=== PATIENT | female | born 1945 | race African-American/Black ===

== ENCOUNTER 2017-03-17 18:20 | Emergency (ER) | payer OTHER, MEDICAID ==
[~2017-03-17] VITALS: Ht 149.9 cm; Wt 95.2 kg
[2017-03-17 21:16] VITALS: BP 128/84
== END 2017-03-17 21:16 | disposition home or self-care (01) ==
LOC: ED 18:20
DX: R00.2 Palpitations (principal); I10 Essential (primary) hypertension; E11.9 Type 2 diabetes mellitus without complications

== ENCOUNTER 2017-06-05 10:50 | Emergency (ER) | payer OTHER, MEDICAID ==
[~2017-06-05] VITALS: Ht 149.9 cm; Wt 88.9 kg
[2017-06-05 11:05] VITALS: Ht 149.9 cm; Wt 88.9 kg
[2017-06-05 12:32] LABS: BASOPHIL % 0.4 % (0-2); PLATELET COUNT 232 x10^3mcL (130-400); RED CELL DISTRIBUTION WIDTH 14.2 % (11.5-14.5)
[2017-06-05 12:50] LABS: microscopic required? YES; urine erythrocyte TRACE (NEGATIVE)
[2017-06-05 12:56] LABS: CK-MB 0.7 ng/mL (0-3.6)
[2017-06-05 13:01] LABS: AMPHETAMINE QUAL UR NONE DETECTED (NEG <=1000)
[2017-06-05 14:02] LABS: CALCIUM 9.2 mg/dL (8.5-10.1); CARBON DIOXIDE 24.6 mmol/L (21-32); CHLORIDE SERUM 100 mmol/L (98-107); CREATININE SERUM 0.8 mg/dL (0.6-1.0); GLUCOSE SERUM 167 mg/dL (74-106); POTASSIUM SERUM 3.5 mmol/L (3.5-5.1); SODIUM SERUM 137 mmol/L (136-145)
[2017-06-05 14:06] LABS: ALBUMIN 3.7 g/dL (3.4-5.0); ALKALINE PHOSPHATASE 71 U/L (46-116); ALT/SGPT 25 U/L (14-59); AST/SGOT 15 U/L (15-37); BILIRUBIN TOTAL 0.3 mg/dL (0.20-1.00); TOTAL PROTEIN, SERUM 8.2 g/dL (6.4-8.2)
[2017-06-05 14:32] VITALS: BP 138/81
== END 2017-06-05 14:32 | disposition home or self-care (01) ==
LOC: ED 10:50
PROVIDERS: Emergency Medicine
DX: I10 Essential (primary) hypertension (principal); E11.9 Type 2 diabetes mellitus without complications; F17.210 Nicotine dependence, cigarettes, uncomplicated; Z00.00 Encounter for general adult medical examination without abnormal findings
CPT/HCPCS: 36415; 36600; G0480; Q0092

== ENCOUNTER 2017-07-24 23:16 | Emergency (ER) | payer OTHER, MEDICAID ==
[2017-07-25 01:02] LABS: microscopic required? NO
[2017-07-25 01:16] LABS: urine erythrocyte NEGATIVE (NEGATIVE)
[2017-07-25 01:24] LABS: CHLORIDE SERUM 101 mmol/L (98-107); CREATININE SERUM 0.9 mg/dL (0.6-1.0); GLUCOSE SERUM 160 mg/dL (74-106); POTASSIUM SERUM 3.5 mmol/L (3.5-5.1); SODIUM SERUM 139 mmol/L (136-145)
[2017-07-25 02:20] VITALS: BP 128/90
== END 2017-07-25 02:20 | disposition home or self-care (01) ==
LOC: ED 23:16
PROVIDERS: Emergency Medicine
DX: I10 Essential (primary) hypertension (principal); E11.9 Type 2 diabetes mellitus without complications; G89.29 Other chronic pain; Z91.013 Allergy to seafood

== ENCOUNTER 2018-08-01 22:15 | Emergency (ER) | payer OTHER, MEDICAID ==
[~2018-08-01] VITALS: Ht 152.4 cm; Wt 90.7 kg
[~2018-08-01 22:15] MED LIST: CLONAZEPAM0.5 MG PO; ENALAPRIL MALEA20 MG PO; HUMALOG100 UNIT/1 SQ; LIPI20 PO; NOR10 PO; PRILOSEC OTC20 M1 PO
[2018-08-01 22:23] VITALS: Ht 152.4 cm; Wt 90.7 kg
[2018-08-01 23:33] LABS: BASOPHIL % 0.4 % (0-2); PLATELET COUNT 237 x10^3mcL (130-400)
[2018-08-01 23:45] LABS: UA SPECIFIC GRAVITY 1.015 (1.005-1.035); microscopic required? YES; urine erythrocyte TRACE (NEGATIVE)
[2018-08-02 00:02] LABS: CALCIUM 8.9 mg/dL (8.5-10.1); CARBON DIOXIDE 26.2 mmol/L (21-32); CHLORIDE SERUM 101 mmol/L (98-107); GLUCOSE SERUM 217 mg/dL (74-106); POTASSIUM SERUM 3.9 mmol/L (3.5-5.1); SODIUM SERUM 137 mmol/L (136-145)
[2018-08-02 00:12] LABS: ALBUMIN 3.7 g/dL (3.4-5.0); ALKALINE PHOSPHATASE 70 U/L (46-116); ALT/SGPT 23 U/L (14-59); AST/SGOT 13 U/L (15-37); BILIRUBIN TOTAL 0.3 mg/dL (0.20-1.00); TOTAL PROTEIN, SERUM 7.9 g/dL (6.4-8.2)
[2018-08-02 00:22] LABS: ERYTHROCYTE SED RATE 27 mm/hr (0-30)
[2018-08-02 02:29] VITALS: BP 148/89
== END 2018-08-02 02:29 | disposition home or self-care (01) ==
LOC: ED 22:15
PROVIDERS: Emergency Medicine
DX: R51 Headache (principal); I16.0 Hypertensive urgency; I10 Essential (primary) hypertension; E11.9 Type 2 diabetes mellitus without complications; G89.29 Other chronic pain; Z91.013 Allergy to seafood
CPT/HCPCS: 36415; 83880; 87804

== ENCOUNTER 2020-01-26 05:04 | Observation (INO) | payer OTHER, MEDICAID ==
[~2020-01-26] VITALS: Ht 152.4 cm; Wt 84.8 kg
[~2020-01-26 05:04] MED LIST changes: +DECADRON4 MG PO; +ELIQUIS2.5 MG PO; +EVI60 PO; +HUMULIN R100 U/1 M1; +NOR10 GT; +VASOTEC20 MG PO
[2020-01-26 05:16] VITALS: Ht 152.4 cm; Wt 84.8 kg
--- NOTE | 2020-01-26 05:18 | NUR ---
PT BIBA FOR C/O GENERAL WEAKNESS X 1 HR AGO. PT WAS RELEASED FROM [facility] [place]ST [place]. PT STATED SHE TESTED POSITIVE FOR COVID-19 ON 01/20/20. PT STATED SHE FELT GENERAL WEAKNESS AND SOME SOB. PER EMS ON RA PT O2 SAT WAS 81% ON 15 L NON-REBREATHER MASK PT O2 SAT @ 98%. PT IS AAOX4, NAD NOTED. PT DENIES ANY PAIN. PT IN GOWN AND PLACED ON FULL CM, VSS. SING AT BEDSIDE FOR MSE. WILL CONTINUE TO MONITOR PT.
--- NOTE | 2020-01-26 05:40 | NUR ---
RT AT BEDSIDE
--- NOTE | 2020-01-26 06:29 | NUR ---
PT REQUESTING BLANKET. T 98.7 BLANKET GIVEN TO PT. LAB AT BEDSIDE. PT ON FULL CM, VSS. WILL CONTINUE TO MONITOR PT.
[2020-01-26 06:49] LABS: PLATELET COUNT 343 x10^3mcL (130-400); RED CELL DISTRIBUTION WIDTH 13.2 % (11.5-14.5)
[2020-01-26 07:03] LABS: ALBUMIN 2.8 g/dL (3.4-5.0); ALKALINE PHOSPHATASE 40 U/L (46-116); ALT/SGPT 27 U/L (14-59); AST/SGOT 19 U/L (15-37); BILIRUBIN TOTAL 0.42 mg/dL (0.20-1.00); C REACTIVE PROTEIN 1.5 mg/dL (<=0.9); CALCIUM 8.6 mg/dL (8.5-10.1); CARBON DIOXIDE 29.3 mmol/L (21-32); CHLORIDE SERUM 98 mmol/L (98-107); GLUCOSE SERUM 220 mg/dL (74-106); LACTIC DEHYDROGENASE (LDH) 312 U/L (100-190); POTASSIUM SERUM 3.4 mmol/L (3.5-5.1); SODIUM SERUM 135 mmol/L (136-145); TOTAL PROTEIN, SERUM 6.8 g/dL (6.4-8.2)
--- NOTE | 2020-01-26 07:10 | NUR ---
GAVE HANDOFF REPORT TO JORDYN RODRIGUEZ, SHE WILL ASSUME CARE OF PT AT THIS TIME.
--- NOTE | 2020-01-26 07:18 | NUR ---
REPORT RECEIVED FROM MALIK RODRIGUEZ. I WILL RESUME CARE OF PT AT THIS TIME.
--- NOTE | 2020-01-26 07:27 | NUR ---
PT LYING IN BED COMFORTABLY IN NO DISTRESS DENIES ANY SOB OR CP AT THIS TIME. O2 DECREASED TO 10L VIA NON REBREATHER. PT REMAINS ON FULL CM SINUS PALLAVI VSS NO FURTHER ORDERS AT THIS TIME. WILL CONTINUE TO MONITOR
--- NOTE | 2020-01-26 07:55 | NUR ---
DR RAMIREZ AT BEDSIDE SPEAKING WITH PT REGARDING POC AND TREATMENT
--- NOTE | 2020-01-26 08:12 | NUR ---
PER DR RODGERS PT CHANGED TO NASAL CANNULA AT 3L 02 SAT AT 97%, PT COMFORTABLE ASSISTED TO BED ZHOU, VOIDED WITH NO PROBLEM. PT RESTING AT THIS TIME. WILL CONTINUE TO MONITOR
--- NOTE | 2020-01-26 08:19 | NUR ---
REPORT GIVEN TO BALWINDER RODRIGUEZ RESUMING CARE OF PT IN TELE FLOOR
--- NOTE | 2020-01-26 08:40 | NUR ---
PT TRANSPORTED TO TELE FLOOR ON PORTABLE CM IN NO DISTRESS BY KIM RODRIGUEZ AND LYLA MAGAÑA. BALWINDER RODRIGUEZ RESUMING CARE OF PT IN TELE FLOOR
[2020-01-26 12:15] VITALS: BP 116/52
[2020-01-26 14:22] VITALS: BP 133/74
[2020-01-26 16:46] VITALS: BP 125/64
[2020-01-26 16:54] VITALS: BP 125/64
--- NOTE | 2020-01-26 18:20 | NUR ---
Pt currently sitting at the edge of the bed eating dinner. Alert and oriented times 4. Pt condition remained stable this shift. Pt has order to be disharge to [facility] which pt in agreeable. Discharge instructions given. IV access on Rt AC removed. Site WNL. Will call for report and continue to monitor.
--- NOTE | 2020-01-26 19:40 | NUR ---
JAIL OFFICER BY [facility], PER AM NURSE ATTEMPTED MANY TIMES TO GIVE REPORT TO CARL CAUSEY BUT NO ANSWER.
== END 2020-01-26 19:43 ==
LOC: ED 05:04 → DU 07:44
PROVIDERS: Emergency Medicine; ADMIT Internal Medicine Pulmonary Disease; ATTEND Internal Medicine Pulmonary Disease
DX: J96.91 Respiratory failure, unspecified with hypoxia (principal); J12.89 Other viral pneumonia; E11.9 Type 2 diabetes mellitus without complications; I10 Essential (primary) hypertension; E66.9 Obesity, unspecified; M81.0 Age-related osteoporosis without current pathological fracture
CPT/HCPCS: 36600; 82962; 83880; G0378; J8540; Q0092